=== PATIENT | male | born 1975 | race Caucasian/White ===

== ENCOUNTER 2025-02-08 09:08 | Outpatient (OUT) | payer OTHER, SELFPAY ==
--- NOTE | 2025-02-08 09:19 | XR_ITS ---
The [address] [address] Patient Name: JESS FULTON MRN: [id number] date: 1975 Sex: M Assigned Patient Location: [facility] Current Patient Location: [facility] Accession/Order Number: [id number] Exam Date: 02/08/2025 11:45 Report Date: 02/08/2025 12:01 At the request of: JAYDE MENDOZA Procedure: XR lumbar spine min 4V 5 views lumbar spine Lumbar Spine HISTORY: Low back pain. COMPARISON: None POSTSURGICAL CHANGES: None BONY ALIGNMENT: Mild scoliosis HYPERMOBILITY:No bending imaging. LISTHESIS:None FRACTURE: None DEGENERATIVE CHANGES: Focal L2 superior endplate compression deformity. Appears chronic. May represent old fracture Schmorl's node. L1-2 posterior peripheral calcification encroaching into the central canal. Mild L4-5 disc space narrowing. Lower lumbar degenerative facet hypertrophy. SOFT TISSUES: Unremarkable BONY MINERALIZATION:Adequate XR/XR lumbar spine min 4V IMPRESSION: Mild to moderate multilevel lumbar degenerative changes. L2 superior endplate change. Likely chronic. May represent old compression fracture versus Schmorl's node. L1-2 posterior peripherally calcified disc protrusion extending into the central canal. Mild to moderate encroachment. Impression dictated by: Avila Wallace M.D.02/08/2025 12:01 PM Dictation Location: [place] [address] Electronically authenticated by: [id number] Y Date: 02/08/2025 12:01
--- NOTE | 2025-02-08 09:19 | XR_ITS ---
The [place] [address] Patient Name: JESS FULTON MRN: [id number] date: 1975 Sex: M Assigned Patient Location: [facility] Current Patient Location: [facility] Accession/Order Number: [id number] Exam Date: 02/08/2025 12:01 Report Date: 02/08/2025 12:03 At the request of: JAYDE MENDOZA Procedure: XR hip ALEXEY 2 views both hips COMPARISON: None HISTORY: Bilateral hip pain Small bony densities lateral to the superior portion of the right and left acetabulum present. Consistent with chronic finding. Adequate hip joint space. Preserved bony articular surface. Minor bilateral hip degeneration. No AVN. No articular collapse. Minor bilateral greater trochanter spurring. May suggest chronic findings of bursitis. XR/XR hip ALEXEY IMPRESSION: Mild degeneration of both hips. Impression dictated by: Avila Wallace M.D.02/08/2025 12:03 PM Dictation Location: [place] [address] Electronically authenticated by: [id number] Y Date: 02/08/2025 12:03
== END 2025-02-08 09:09 | disposition home or self-care (01) ==
LOC: RAD 09:14
PROVIDERS: PCP Nurse Practitioner Family; Visit Provider Nurse Practitioner Family
DX: M54.50 Low back pain, unspecified (principal); M25.551 Pain in right hip; M25.552 Pain in left hip
CPT/HCPCS: 72110; 73522

== ENCOUNTER 2025-02-23 07:53 | Outpatient (RCR) | payer OTHER, SELFPAY | END 2025-03-14 07:01 | disposition home or self-care (01) | LOC: PT 07:53 | PROVIDERS: PCP Nurse Practitioner Family; Visit Provider Nurse Practitioner Family | DX: M54.50 Low back pain, unspecified (principal) | CPT/HCPCS: 97110; 97161 ==